=== PATIENT | male | born 1965 | race Caucasian/White ===

== ENCOUNTER → 2019-06-18 | Outpatient (CLI) | payer BC | LOC: WCC 14:14 | PROVIDERS: ATTEND Podiatrist | DX: E11.621 Type 2 diabetes mellitus with foot ulcer (principal); I96 Gangrene, not elsewhere classified; L03.115 Cellulitis of right lower limb; L97.516 Non-pressure chronic ulcer of other part of right foot with bone involvement without evidence of necrosis; I70.203 Unspecified atherosclerosis of native arteries of extremities, bilateral legs; B96.89 Other specified bacterial agents as the cause of diseases classified elsewhere; I10 Essential (primary) hypertension; I25.810 Atherosclerosis of coronary artery bypass graft(s) without angina pectoris; E78.5 Hyperlipidemia, unspecified | CPT/HCPCS: 36415; 84134; 85651; 86140 ==

== ENCOUNTER → 2019-06-20 | Outpatient (CLI) | payer BC | LOC: WCC 10:49 | PROVIDERS: ATTEND Internal Medicine Infectious Disease | DX: E11.621 Type 2 diabetes mellitus with foot ulcer (principal); I96 Gangrene, not elsewhere classified; L97.516 Non-pressure chronic ulcer of other part of right foot with bone involvement without evidence of necrosis; L03.115 Cellulitis of right lower limb; I70.203 Unspecified atherosclerosis of native arteries of extremities, bilateral legs; B96.89 Other specified bacterial agents as the cause of diseases classified elsewhere; I10 Essential (primary) hypertension; E78.5 Hyperlipidemia, unspecified; I25.810 Atherosclerosis of coronary artery bypass graft(s) without angina pectoris ==

== ENCOUNTER → 2019-06-25 | Outpatient (CLI) | payer BC | LOC: WCC 13:22 | PROVIDERS: ATTEND Podiatrist | DX: E11.621 Type 2 diabetes mellitus with foot ulcer (principal); I96 Gangrene, not elsewhere classified; L97.516 Non-pressure chronic ulcer of other part of right foot with bone involvement without evidence of necrosis; I70.203 Unspecified atherosclerosis of native arteries of extremities, bilateral legs; L03.115 Cellulitis of right lower limb; B96.89 Other specified bacterial agents as the cause of diseases classified elsewhere; I10 Essential (primary) hypertension; E78.5 Hyperlipidemia, unspecified; I25.810 Atherosclerosis of coronary artery bypass graft(s) without angina pectoris ==

== ENCOUNTER → 2019-06-27 | Outpatient (CLI) | payer BC ==
[~2019-06-27] MED LIST: IOPAMIDOL 370 MG/ML 200 ML INFUS..BTL INJ ONE; SODIUM CHLORIDE 0.9% 500ML 500 ML ONE; SODIUM CHLORIDE 0.9% 50ML 50 ML ONE
[2019-06-27 10:45] LABS: HEMOGLOBIN 12.2 g/dL (14.0-18.0)
[2019-06-27 10:58] LABS: CREATININE, SERUM 1.77 mg/dL (0.72-1.25)
[2019-06-27 11:32] LABS: INR 0.78; PROTHROMBIN TIME 11.3 seconds (11.9-14.5)
[2019-06-27 11:33] LABS: PARTIAL THROMBOPLASTIN TIME 28.4 seconds (23.8-35.5)
--- NOTE | 2019-06-27 12:16 | Diagnostic Imaging Report ---
Exam: Chest one view Clinical history: PICC insertion Findings: A right arm PICC is noted with its tip at the cavoatrial junction. There is no evidence of pulmonary consolidation, pleural effusion, or pneumothorax. The cardiac size is within normal limits. The regional osseous structures are unremarkable. Signed by: Dr. Pino Oviedo MD on 06/27/2019 12:13 PM
--- NOTE | 2019-06-27 13:40 | Diagnostic Imaging Report ---
TECHNIQUE: Computed tomography imaging of the right foot was performed WITHOUT injected contrast. Dose modulation, iterative reconstruction, and/or weight based adjustment of the mA/kV was utilized to reduce the radiation dose to as low as reasonably achievable. HISTORY: diabetes, ulcer COMPARISON: None available. DISCUSSION: Soft tissue ulceration of the lateral plantar forefoot with skin thickening. No visualized sinus tract or abscess. No bone erosion or periostitis. No fracture. Vascular calcifications. IMPRESSION: Soft tissue ulceration of the lateral forefoot. No visualized abscess or osteomyelitis. Signed by: Dr. Joaquin Zhang M.D. on 06/27/2019 1:37 PM
== END ==
LOC: CT 09:47
PROVIDERS: ATTEND Podiatrist
DX: E11.621 Type 2 diabetes mellitus with foot ulcer (principal); L97.516 Non-pressure chronic ulcer of other part of right foot with bone involvement without evidence of necrosis
CPT/HCPCS: 36415; 36569; 73701; 82565; 84520; 85014; 85049; 85610; 85730; 96360; J7040; Q9967

== ENCOUNTER → 2019-07-04 | Outpatient (CLI) | payer BC | LOC: WCC 13:05 | PROVIDERS: ATTEND Internal Medicine Infectious Disease | DX: E11.621 Type 2 diabetes mellitus with foot ulcer (principal); I96 Gangrene, not elsewhere classified; L97.516 Non-pressure chronic ulcer of other part of right foot with bone involvement without evidence of necrosis; L03.115 Cellulitis of right lower limb; I70.203 Unspecified atherosclerosis of native arteries of extremities, bilateral legs; I10 Essential (primary) hypertension; E78.5 Hyperlipidemia, unspecified; I25.810 Atherosclerosis of coronary artery bypass graft(s) without angina pectoris; B96.89 Other specified bacterial agents as the cause of diseases classified elsewhere ==

== ENCOUNTER → 2019-07-07 | Outpatient (CLI) | payer BC ==
[~2019-07-07] MED LIST changes: +SODIUM CHLORIDE 0.9% 100 ML ONE; -SODIUM CHLORIDE 0.9% 50ML 50 ML ONE
[2019-07-07 12:21] LABS: CREATININE, SERUM 1.35 mg/dL (0.72-1.25)
--- NOTE | 2019-07-07 14:30 | Diagnostic Imaging Report ---
CTA OF THE BILATERAL LOWER EXTREMITIES WITH CONTRAST. INDICATION: Atherosclerosis COMPARISON: None. TECHNIQUE: Axial images are obtained of the abdominal aorta from the bifurcation through both lower extremities after the administration of intravenous contrast material according to the CTA lower extremity protocol. Coronal and sagittal reformations as well as 3-D reformations were obtained. RADIATION DOSE: Total DLP: 1388.41 mGy*cm Dose modulation, iterative reconstruction, and/or weight based adjustment of the mA/kV was utilized to reduce the radiation dose to as low as reasonably achievable. FINDINGS: Vascular: The visualized intrarenal abdominal aorta is normal in course and caliber. Right lower extremity material system: Right common iliac, internal iliac common and external iliac arteries are patent. The right common femoral, profunda, and superficial femoral arteries are patent with mild atherosclerotic plaquing. The right popliteal artery, anterior tibial artery, tibioperoneal trunk are patent. The peroneal artery is patent to level of the distal calf/ankle. The anterior and posterior tibial arteries are patent to the foot. Left lower extremity arterial system: The left common iliac, internal iliac, and external iliac arteries are patent. The left common femoral, profunda, and superficial femoral arteries are patent with mild atherosclerotic plaquing. The left popliteal artery, anterior tibial artery, and tibioperoneal trunk are patent. The peroneal artery is patent to the level of the distal calf. The anterior and posterior tibial arteries are patent to level of the foot. Nonvascular: The visualized intra-abdominal and intrapelvic contents are grossly unremarkable. The visualized loops of bowel demonstrate no evidence of obstruction or inflammation. The urinary bladder and prostate are grossly unremarkable. Nonspecific normal sized inguinal lymph nodes are noted bilaterally, slightly more prominent on the right. The osseous structures demonstrate no evidence for acute fracture or destructive process. IMPRESSION: Mild lower extremity arterial atherosclerosis. Otherwise, unremarkable CTA of the bilateral lower extremities with essentially 3 vessel runoff noted bilaterally. Signed by: Dr. Josse Rosales MD on 07/07/2019 2:26 PM
== END ==
LOC: CT 10:46
PROVIDERS: ATTEND Podiatrist
DX: E11.621 Type 2 diabetes mellitus with foot ulcer (principal); L97.516 Non-pressure chronic ulcer of other part of right foot with bone involvement without evidence of necrosis; I70.208 Unspecified atherosclerosis of native arteries of extremities, other extremity
CPT/HCPCS: 36415; 73706; 82565; 84520; 96360; J7040; J7050; Q9967

== ENCOUNTER → 2019-07-11 | Outpatient (CLI) | payer BC ==
[~2019-07-11] MED LIST changes: +COLLAGENASE OINTMENT 30 GM TUBE ONE; -IOPAMIDOL 370 MG/ML 200 ML INFUS..BTL INJ ONE; +MUPIROCIN 2% OINT 22 GM TUBE ONE; -SODIUM CHLORIDE 0.9% 100 ML ONE; -SODIUM CHLORIDE 0.9% 500ML 500 ML ONE
== END ==
LOC: WCC 10:37
PROVIDERS: ATTEND Internal Medicine Infectious Disease
DX: E11.621 Type 2 diabetes mellitus with foot ulcer (principal); I96 Gangrene, not elsewhere classified; L03.115 Cellulitis of right lower limb; L97.516 Non-pressure chronic ulcer of other part of right foot with bone involvement without evidence of necrosis; I70.203 Unspecified atherosclerosis of native arteries of extremities, bilateral legs; I10 Essential (primary) hypertension; E78.5 Hyperlipidemia, unspecified; I25.810 Atherosclerosis of coronary artery bypass graft(s) without angina pectoris; B96.89 Other specified bacterial agents as the cause of diseases classified elsewhere

== ENCOUNTER → 2019-07-25 | Outpatient (CLI) | payer BC | LOC: WCC 13:08 | PROVIDERS: ATTEND Internal Medicine Infectious Disease | DX: E11.621 Type 2 diabetes mellitus with foot ulcer (principal); I96 Gangrene, not elsewhere classified; L97.516 Non-pressure chronic ulcer of other part of right foot with bone involvement without evidence of necrosis; L03.115 Cellulitis of right lower limb; I70.203 Unspecified atherosclerosis of native arteries of extremities, bilateral legs; B96.89 Other specified bacterial agents as the cause of diseases classified elsewhere; I10 Essential (primary) hypertension; I25.810 Atherosclerosis of coronary artery bypass graft(s) without angina pectoris; E78.5 Hyperlipidemia, unspecified ==

== ENCOUNTER → 2019-08-08 | Outpatient (CLI) | payer BC | LOC: WCC 09:46 | PROVIDERS: ATTEND Internal Medicine Infectious Disease | DX: E11.621 Type 2 diabetes mellitus with foot ulcer (principal); I96 Gangrene, not elsewhere classified; L97.516 Non-pressure chronic ulcer of other part of right foot with bone involvement without evidence of necrosis; L03.115 Cellulitis of right lower limb; I70.203 Unspecified atherosclerosis of native arteries of extremities, bilateral legs; I10 Essential (primary) hypertension; B96.89 Other specified bacterial agents as the cause of diseases classified elsewhere; E78.5 Hyperlipidemia, unspecified; I25.810 Atherosclerosis of coronary artery bypass graft(s) without angina pectoris; Z01.810 Encounter for preprocedural cardiovascular examination; Z01.811 Encounter for preprocedural respiratory examination ==